=== PATIENT | female | born 1940 | race Caucasian/White ===

== ENCOUNTER 2017-04-10 19:48 | Emergency (ER) | payer MEDICARE ==
[2017-04-10] MEDS ORDERED: Morphine VIAL* 10 MG/ML 1 ML VIAL IM ONE (20:02)
--- NOTE | 2017-04-10 20:08 | UC ---
Abdominal Pain Female HPI - HPI Summary HPI Summary: Patient has had left flank pain since noon today, severe sharp pains and vomiting, the pain has moved toward the side and lower abdomen, Hx of stones in the past and has had appendix removed, GB still present. patient states she feels bloated, is able to urinate - History of Current Complaint Chief Complaint: UCAbdominalPain Stated Complaint: VOMITING/SIDE PAIN Time Seen by Provider: 04/10/17 19:54 Hx Obtained From: Patient ?: No Onset/Duration: Sudden Onset, Lasting Hours Timing: Constant Severity Initially: Moderate Severity Currently: Severe Location: Discrete At: LLQ, Other - left falnk Radiates: No Radiates to: Flank, LLQ Character: Sharp Aggravating Factor(s): Food, Movement Alleviating Factor(s): Position Associated Signs and Symptoms: Positive: Urinary Symptoms, Nausea, Vomiting Allergies/Adverse Reactions: Allergies Allergy/AdvReac Type Severity Reaction Status Date / Time SODIUM PENATHOL Allergy Severe INJECTION Uncoded 04/10/17 19:53 SITE REATION PMH/Surg Hx/FS Hx/Imm Hx Previously Healthy: Yes - Surgical History Surgical History: Yes Surgery Procedure, Year, and Place: APENDECTOMY , MESH INSERTED AFTER WOUND "OPENED UP" CATARACS, partial thyroidectomy - Family History Known Family History: Positive: Hypertension - Social History Alcohol Use: None Substance Use Type: None Smoking Status (MU): Never Smoked Tobacco Review of Systems Constitutional: Chills, Fatigue Skin: Negative Eyes: Negative ENT: Negative Respiratory: Negative Cardiovascular: Negative Gastrointestinal: Abdominal Pain, Vomiting, Nausea Genitourinary: Frequency Motor: Negative Neurovascular: Negative Musculoskeletal: Negative Neurological: Negative Psychological: Negative All Other Systems Reviewed And Are Negative: Yes Physical Exam Triage Information Reviewed: Yes Appearance: Well-Nourished, Ill-Appearing, Pain Distress Vital Signs: Initial Vital Signs Temp 96.8 F 04/10/17 19:49 Pulse 97 04/10/17 19:49 Resp 16 04/10/17 19:49 BP 138/71 04/10/17 19:49 Pulse Ox 99 04/10/17 19:49 Vital Signs Reviewed: Yes Eye Exam: Normal Eyes: Positive: Conjunctiva Clear ENT Exam: Normal Dental Exam: Normal Neck exam: Normal Respiratory Exam: Normal Cardiovascular Exam: Normal Cardiovascular: Positive: RRR, No Murmur, Pulses Normal Abdomen Description: Positive: No Organomegaly, CVA Tenderness (R) - neg, CVA Tenderness (L) - pos, Distended, Peritoneal Signs - neg, Pulsatile Mass - neg, Splenomegaly - neg Bowel Sounds: Positive: Present Musculoskeletal Exam: Normal Musculoskeletal: Positive: Strength Intact, ROM Intact, No Edema Neurological Exam: Normal Neurological: Positive: Alert, Muscle Tone Normal Psychological Exam: Normal Skin Exam: Normal Abd Pain Female Course/Dx - Course Course Of Treatment: hx obtained, exam performed, meds reviewed, CT obtained shows large pelvic mass, see report, morphine given for pain. Sent to [facility] for further evaluation - Differential Dx/Diagnosis Differential Diagnosis: Diverticulitis, Gall Bladder Disease, Pancreatitis, Renal Colic, Urinary Tract Infection Provider Diagnoses: Abdominal Pain. 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
--- NOTE | 2017-04-10 20:48 | RAD ---
Indication: Abdominal pain, flank and lower abdominal pain. CT of the abdomen and pelvis was performed without oral or IV contrast administration. Coronal and sagittal reconstructed images were obtained. The lung bases demonstrate no pleural fluid, nodules or masses. Calcified granuloma is noted in the left lower lobe. The heart demonstrates no pericardial effusion. The liver is normal in size. No focal lesions or intrahepatic ductal dilatation is noted. The gallbladder demonstrates no calcified gallstones. No pericholecystic fluid or wall thickening is identified. The common duct is not dilated. The pancreas demonstrates no mass or pancreatic duct dilatation. The spleen is normal size. No adrenal masses are noted. The kidneys demonstrate no hydronephrosis. No retroperitoneal lymphadenopathy is noted. No dilated loops of bowel are noted. The aorta demonstrates no evidence of aneurysmal dilatation. CT of the pelvis demonstrates uterus to be unremarkable. There is a mass presumably in the right adnexa measuring approximately 12 x 6.8 x 9.0 cm. This may represent cystic neoplasm. A small to moderate amount of ascites is noted. Direct visualization by laparoscopy is suggested. Alternatively ultrasound and MRI could BE performed to further characterize. Urinary bladder is unremarkable. IMPRESSION: There is a pelvic mass adjacent to the uterus presumably from the right adnexa measuring up to 12 cm. This may represent a cystic neoplasm or an ovarian neoplasm. There is adjacent fluid noted. Correlation with pelvic ultrasound, MRI and/or laparoscopy is suggested.
[2017-04-10 21:39] VITALS: BP 140/102
== END 2017-04-10 22:01 | disposition left against medical advice (07) ==
LOC: UCCORT 19:48
DX: R19.03 Right lower quadrant abdominal swelling, mass and lump (principal); R10.32 Left lower quadrant pain; R11.2 Nausea with vomiting, unspecified; Z87.442 Personal history of urinary calculi
CPT/HCPCS: 74176; 96372; 99212; G0463; J2270